=== PATIENT | female | born 1955 | race Caucasian/White ===

== ENCOUNTER 2017-05-22 18:35 | Inpatient (IN) ==
[2017-05-22] MEDS ORDERED: MORPHINE SULFATE 4mg INJECTION IVP ONE (18:37)
[2017-05-22] MEDS ORDERED: NS 1,000 ML IV ONE (18:37)
[2017-05-22] MEDS ORDERED: ONDANSETRON 4 MG/2 ML INJECTION IVP ONE (18:37)
--- NOTE | 2017-05-22 19:11 | Emergency Department Report ---
Fall HPI - General Chief Complaint: Fall Stated Complaint: Fall,hip pain Time Seen by Provider: 05/22/17 18:37 Source: patient, EMS Mode of arrival: EMS Limitations: no limitations - History of Present Illness HPI Narrative: 61yo woman presented to the ER for left hip pain. Pt was walking her dog immediately prior to presentation. The dog jerked her leash, and pt stumbled and fell. Now has severe left hip pain, external rotation, and shortening of her left leg. Denies other injuries or pain. MD complaint: fall Onset (ago): hour(s) Fall from: standing Fall witnessed: no Place fall occurred: home Loss of consciousness: none Prolonged down time: no Symptoms prior to fall: none Context: tripped/slipped Location of injury: pelvis Severity: severe Severity scale (1-10): 10 Quality: sharp, stabbing Associated symptoms (after fall): denies - Related Data Home Medications Medication Instructions Recorded Confirmed Albuterol Sulfate [Proair Hfa] 8.5 gm IH PRN #0 04/08/10 05/22/17 Folic Acid 400 mcg PO HS #0 04/08/10 05/22/17 Aspirin 325 mg PO DAILY #0 tab 12/10/14 05/22/17 Multivit-Min/Iron/Folic/Lutein 1 tab PO DAILY 02/17/17 05/22/17 [Centrum Silver Women Tablet] Acyclovir [Acyclovir] 400 mg PO BID 05/22/17 05/22/17 Gabapentin [Neurontin] 200 mg PO HS 05/22/17 05/22/17 Leflunomide [Leflunomide] 20 mg PO DAILY 05/22/17 05/22/17 Lidocaine [Lidocaine] 1 patch TD DAILY 05/22/17 05/22/17 Losartan Potassium [Cozaar] 25 mg PO DAILY 05/22/17 05/22/17 METHOTREXATE 2.5mg TAB 10 mg PO .BIDQ7D 05/22/17 05/22/17 [Methotrexate] PredniSONE [Deltasone] 7 mg PO Q30D 05/22/17 05/22/17 Sertraline [Zoloft] 100 mg PO DAILY 05/22/17 05/22/17 Tofacitinib Citrate [Xeljanz Xr] 11 mg PO DAILY 05/22/17 05/22/17 Previous Rx's Medication Instructions Recorded Breo Ellipta (fluticasone 100 1 inh INH Q24H #60 each 01/20/17 mcg-vilanterol 25 mcg/dose) powder for inhalation levalbuterol 1.25 mg/3 mL solution 1.25 mg INH Q4H PRN #3 ml 02/10/17 for nebulization Protonix (Pantoprazole)40 mg 40 mg PO QAM #90 tab 03/19/17 tablet,delayed release alendronate 70 mg tablet 70 mg PO WEEKLY #12 tab 03/19/17 estradiol 0.0375 mg/24 hr 1 patch TD 2XW #8 patch 04/14/17 semiweekly transdermal patch Allergies Allergy/AdvReac Type Severity Reaction Status Date / Time celecoxib Allergy Unknown N&V Verified 05/22/17 19:33 Review of Systems All systems: reviewed and negative except as stated Musculoskeletal: Reports: as per HPI PFSH Patient Stated Medical History Hypertension Yes Asthma Yes Pneumonia Yes Gastroesophageal Reflux Yes Disease Other Musculoskeletal Yes: 2 colapsed discs: 9,12 Sepsis Yes: leg Depression Yes Clinic Medical History (Last Updated 03/18/17 @ 16:54 by KATERINA Kinney ) Asthma (Chronic Medical) Hyperlipemia (Chronic Medical) Rheumatoid arthritis (Chronic Medical) Cellulitis and abscess of leg (Resolved Medical) Surgical History: eye surg at age 16, hysterectomy, appendectomy, neck surg ( bone spur)-2013 Family History: Family History (Last Updated 03/18/17 @ 16:59 by KATERINA Kinney) Mother Heart disease Sister COPD (chronic obstructive pulmonary disease) Brother Heart disease Diabetes HTN (hypertension) - Social History Smoking status: Former smoker Physical Exam - Limitations Limitations: no limitations - General General appearance: alert, in no apparent distress - Normal Exams: Head:: Normocephalic without trauma Eyes:: Pupils are PERRLA w/ EOMI, No scleral icterus, irritation, or foreign bodies noted ENMT:: No facial trauma, nasal exudates, pharyngeal erythema, or exudates are noted Neck:: Full range of motion, without adenopathy Chest/Respirations:: Clear all jernigan, with good airflow Cardiovascular:: Regular rate and rhythm, without murmur or gallop Abdomen:: Bowel sounds positive, soft, non-tender Lymphatic:: No lymphadenopathy Integumentary:: No rashes, hives, or bruising noted Neurological:: Patient is alert, and oriented Psychiatric:: Patient exhibits, appropriate attention - Expanded Lower Extremity Exam Hip/Pelvis exam: Present: tenderness, ecchymosis, deformity, crepitus, external rotation, shortening, pelvis stable. Absent: normal inspection, full ROM, swelling, abrasion, laceration, dislocation, erythema, internal rotation Neurovascular/Tendon exam: Present: normal capillary refill Course - Consultations Consultation #1: Ortho: Glenn - Will surgerize. Requests IM help with admission/stabilization/pre- op. Time: 19:10 Consultation #2: Braxton Telemed: Will admit to Surg. Time: 19:18 Vital Signs Temperature 97.6 F 05/22/17 18:35 Pulse Rate 88 05/22/17 18:35 Respiratory Rate 20 05/22/17 18:35 Blood Pressure 192/101 H 05/22/17 18:35 Pulse Oximetry 97 05/22/17 18:35 Temperature 96.3 F L 05/22/17 21:12 Pulse Rate 92 05/22/17 21:12 Respiratory Rate 14 05/22/17 21:12 Blood Pressure 153/75 H 05/22/17 21:12 Pulse Oximetry 98 05/22/17 21:12 Fall - MDM Narrative Medical decision making narrative: Pt with obvious left hip fx; will contact ortho for discussion. Will likely be admitted to hospitalist. - Differential Diagnosis Likely: syncope, compression fracture (Hip fx), concussion without loss of consciousness - Medical Records Attestation: I reviewed the patient's medical records. - Lab Data Attestation: I reviewed the patient's lab results. Result diagrams: 05/22/17 18:49 05/22/17 18:49 Lab Results 05/22/17 05/22/17 05/22/17 Range/Units 18:49 18:49 18:49 WBC 5.2 (4.5-11.0) T/MM3 RBC 3.82 L (4.00-5.20) M/MM3 Hgb 11.6 L (12-16) GM/DL Hct 36.0 (36-46) % MCV 94.2 (80-100) UM3 MCH 30.4 (26-34) UUG MCHC 32.2 (31-37) GM/DL RDW Std Deviation 49.7 (36.9-50.2) FL Plt Count 130 (130-400) T/MM3 MPV 10.8 (9.4-12.4) UM3 Immature Gran % (Auto) 0.2 (0.0-0.5) % Neut % (Auto) 32.5 L (33-66) % Lymph % (Auto) 51.5 H (23-45) % [place] % (Auto) 10.0 H (0-9.0) % Eos % (Auto) 5.2 H (0-4) % Baso % (Auto) 0.6 (0-2) % Neut # (Auto) 1.7 L (1.8-7.7) T/MM3 Lymph # (Auto) 2.7 (1-4.8) T/MM3 [place] # (Auto) 0.5 (0-0.8) T/MM3 Eos # (Auto) 0.3 (0-0.5) T/MM3 Baso # (Auto) 0.0 (0-0.2) T/MM3 Abs Immat Gran (auto) 0.01 (0.00-0.03) T/MM3 Turbidity < 20 (0-20) Sodium 139 (134-144) MEQ/L Potassium 4.0 (3.6-5) MEQ/L Chloride 105 (98-107) MEQ/L Carbon Dioxide 30 (22-30) MEQ/L Anion Gap 4 L (5-15) MEQ/L BUN 16.0 (7-17) MG/DL Creatinine 0.8 (0.7-1.2) MG/DL GFR Calculation 73 BUN/Creatinine Ratio 20 (6-26) RATIO Glucose 87 (65-110) MG/DL Calculated Osmolality 268 (261-280) MOSM/KG Calcium 9.1 (8.4-10.2) MG/DL Total Bilirubin 0.60 (0.20-1.30) MG/DL Icterus Index < 2 (0-7) AST 44 H (14-36) U/L ALT 44 (9-52) U/L Alkaline Phosphatase 138 H (38-126) U/L Creatine Kinase 106 (30-135) U/L Total Protein 7.5 (6.3-8.2) G/DL Albumin 3.8 (3.5-5.0) G/DL Globulin 3.7 H (2.4-3.6) G/DL Albumin/Globulin Ratio 1.0 L (1.1-2.2) RATIO Specimen Hemolysis < 15 (0-25) Blood Type A Positive Antibody Screen Negative - Radiology Data Attestation: I reviewed the patient's radiology results. Pelv with Left hip: Left femoral neck fx with superior displacement. CXR: Stable chest. No acute CT pathology. - EKG Data EKG #1 EKG attestation: Yes: I reviewed and interpreted this EKG. EKG shows normal: sinus rhythm, axis, intervals, QRS complexes Interpretation: nonspecific ST-T wave changes Disposition Clinical Impression: Left displaced femoral neck fracture Disposition: 02 To [facility] Acute Care Condition: Improved Time of Disposition: 19:23 - Seen By: physician
[2017-05-22] MEDS ORDERED: ALBUTEROL 2.5mg/3ml (0.083%) NEB AEROSOL PRN (21:11)
[2017-05-22] MEDS ORDERED: ACETAMINOPHEN 325 MG TABLET PO PRN (21:11)
[2017-05-22] MEDS ORDERED: ONDANSETRON 4 MG/2 ML INJECTION IVP PRN (21:11)
[2017-05-22 21:16] VITALS: BMI 23.3
[2017-05-22] MEDS: MORPHINE SULFATE 4mg INJECTION IVP PRN (21:34)
[2017-05-22] MEDS: NS 1,000 ML IV SCH (21:42)
--- NOTE | 2017-05-22 21:46 | Orthopedic Consult Note ---
Orthopedic Consultation HPI - Consultation Info Consult Date: 05/22/17 Attending Physician: Marc Egan MD - History of Present Illness Enma was outside in the strong wind with her dogs when the dogs pulled one direction and she lost her balance. She fell landing on concrete and injuring her left hip. She had immediate pain and was unable to get up.. Denies other injury with this fall. She has been in her normal state of health prior to this fall. Denies CP, cough, SOA, fever, or other medical concerns. Review of Systems - Constitutional Constitutional: Absent: chills, fever(s), headache(s) - Cardiovascular Cardiovascular: Absent: chest pain, syncope, dyspnea on exertion - Respiratory Respiratory: Absent: cough, dyspnea, dyspnea on exertion - Gastrointestinal Gastrointestinal: Absent: abdominal pain, change in bowel habits, diarrhea, vomiting - Genitourinary Genitourinary General: Absent: chills, fever(s) Genitourinary Female: Absent: dysuria - Musculoskeletal Musculoskeletal: Present: as per HPI - Neurological Neurological: Absent: numbness, tingling, paralysis/paresis [facility] Medical History (Last Updated 03/18/17 @ 16:54 by KATERINA Kinney ) Asthma (Chronic Medical) Hyperlipemia (Chronic Medical) Rheumatoid arthritis (Chronic Medical) Cellulitis and abscess of leg (Resolved Medical) Surgical History: eye surg at age 16, hysterectomy, appendectomy, neck surg ( bone spur)-2013 Family History: Family History (Last Updated 03/18/17 @ 16:59 by KATERINA Kinney) Mother Heart disease Sister COPD (chronic obstructive pulmonary disease) Brother Heart disease Diabetes HTN (hypertension) - Social History Smoking status: Former smoker Medications Home Medications Medication Instructions Recorded Confirmed Type Albuterol Sulfate [Proair Hfa] 8.5 gm IH PRN #0 04/08/10 05/22/17 History Folic Acid 400 mcg PO HS #0 04/08/10 05/22/17 History Aspirin 325 mg PO DAILY #0 tab 12/10/14 05/22/17 History Multivit-Min/Iron/Folic/Lutein 1 tab PO DAILY 02/17/17 05/22/17 History [Centrum Silver Women Tablet] Acyclovir [Acyclovir] 400 mg PO BID 05/22/17 05/22/17 History Gabapentin [Neurontin] 200 mg PO HS 05/22/17 05/22/17 History Leflunomide [Leflunomide] 20 mg PO DAILY 05/22/17 05/22/17 History Lidocaine [Lidocaine] 1 patch TD DAILY 05/22/17 05/22/17 History Losartan Potassium [Cozaar] 25 mg PO DAILY 05/22/17 05/22/17 History METHOTREXATE 2.5mg TAB 10 mg PO .BIDQ7D 05/22/17 05/22/17 History [Methotrexate] PredniSONE [Deltasone] 7 mg PO Q30D 05/22/17 05/22/17 History Sertraline [Zoloft] 100 mg PO DAILY 05/22/17 05/22/17 History Tofacitinib Citrate [Xeljanz Xr] 11 mg PO DAILY 05/22/17 05/22/17 History Allergies Allergy/AdvReac Type Severity Reaction Status Date / Time celecoxib Allergy Unknown N&V Verified 05/22/17 19:33 Orthopedic Exam Vital signs: Temperature 96.3 F L 05/22/17 21:12 Pulse Rate 92 05/22/17 21:12 Respiratory Rate 14 05/22/17 21:12 Blood Pressure 153/75 H 05/22/17 21:12 Pulse Oximetry 98 05/22/17 21:12 - Constitutional General Appearance: Present: cooperative, no acute distress, somnolent (Has received pain meds in ER. Sleepy ) - Respiratory Exam Present: non-labored - Cardiovascular Exam Capillary Refill: < 2-3 Seconds - Abdominal Exam Present: soft. Absent: tenderness, distended - Extremities Exam Present: pulses intact, normal capillary refill - Hip Exam left Hip Exam: Present: unequal leg length (Short and externally rotated left leg.), tender over trochanter, abnormal rotation - Integumentary Exam Present: pink, warm, dry - Neurological Exam Present: intact to light touch, no deficits - Psychiatric Exam Present: other (Sleepy from pain meds. Pt in ER trauma bay when I talked with her.) - Labs Result Diagrams: 05/22/17 18:49 05/22/17 18:49 Impression and Recommendation (1) Left displaced femoral neck fracture Current visit: Yes Status: Acute Pt will require either keven arthroplasty vs ROSANNA to treat this fracture. Dr Link will discuss the options with her tomorrow morning. Consent will be obtained after the type of procedure has been decided. Pre op meds have been ordered. Scenic traction prn for spasms. Anticipate surgery on FridayMay 23. NPO after midnight. Hospital Course Summary Disclaimer: The visit summary below is not to be considered part of the above Progress Note.
[2017-05-22] MEDS ORDERED: FALL RISK - PHARMACY CONSULT MC ONE (21:49)
--- NOTE | 2017-05-22 22:11 | History & Physical Report ---
<Juan Manuel Mcknight - Last Filed: 05/22/17 22:08> History of Present Illness Date: 05/22/17 Chief complaint: left hip pain HPI: This is a 61 y/o female who was walking two of her 5 dogs this evening and got tangled in the leash and fell landing on her left hip. Immediate pain. Presents to the ED with xray confirming displaced surgical neck fx of left femur. Dr. Link contacted and will see in the am. From a medical perspective she has a history of RA and is currently on a biological agent for this. Sheis being slowly tapered on her steroids. The patients level of activity is good. Very engaged in her environment and is able to perform over 8 METS of activity. The patient had a stress test 2 yrs ago that she reports as negative. Admit for surgical repair of hip. Review of Systems Review of systems: no headache, no chage in vision, no sore throat, no trouble swallowing, no neck pain (hx of c spine fusion in the past), no chest pain, no PND, no orthopnea, no ALONSO, no heart palpitations, no abdomen pain, no nausea no vomiting, no focal motor weakness, sig pain to let hip. 10 point ROS otherwise neg except for outlined above. PFSH Patient Stated Medical History Hypertension Yes Asthma Yes Pneumonia Yes Gastroesophageal Reflux Yes Disease Other Musculoskeletal Yes: 2 colapsed discs: 9,12, Rheumatoid Arthritis Sepsis Yes: leg Other Yes: Fibromyalgia Depression Yes Clinic Medical History (Last Updated 03/18/17 @ 16:54 by KATERINA Kinney ) Asthma (Chronic Medical) Hyperlipemia (Chronic Medical) Rheumatoid arthritis (Chronic Medical) Cellulitis and abscess of leg (Resolved Medical) Surgical History: eye surg at age 16, hysterectomy, appendectomy, neck surg ( bone spur)-2013 Family History: Family History (Last Updated 03/18/17 @ 16:59 by KATERINA Kinney) Mother Heart disease Sister COPD (chronic obstructive pulmonary disease) Brother Heart disease Diabetes HTN (hypertension) - Social History Smoking status: Former smoker Alcohol intake frequency: does not drink Housing: house Household members: spouse Current occupational exposures/hazards: Yes Does patient use chewing tobacco?: No Current residence: Apartment/Private Home Medications Home Medications Medication Instructions Recorded Confirmed Type Albuterol Sulfate [Proair Hfa] 8.5 gm IH PRN #0 04/08/10 05/22/17 History Folic Acid 400 mcg PO HS #0 04/08/10 05/22/17 History Aspirin 325 mg PO DAILY #0 tab 12/10/14 05/22/17 History Multivit-Min/Iron/Folic/Lutein 1 tab PO DAILY 02/17/17 05/22/17 History [Centrum Silver Women Tablet] Acyclovir [Acyclovir] 400 mg PO BID 05/22/17 05/22/17 History Gabapentin [Neurontin] 200 mg PO HS 05/22/17 05/22/17 History Leflunomide [Leflunomide] 20 mg PO DAILY 05/22/17 05/22/17 History Lidocaine [Lidocaine] 1 patch TD DAILY 05/22/17 05/22/17 History Losartan Potassium [Cozaar] 25 mg PO DAILY 05/22/17 05/22/17 History METHOTREXATE 2.5mg TAB 10 mg PO .BIDQ7D 05/22/17 05/22/17 History [Methotrexate] PredniSONE [Deltasone] 7 mg PO Q30D 05/22/17 05/22/17 History Sertraline [Zoloft] 100 mg PO DAILY 05/22/17 05/22/17 History Tofacitinib Citrate [Xeljanz Xr] 11 mg PO DAILY 05/22/17 05/22/17 History Allergies Allergy/AdvReac Type Severity Reaction Status Date / Time celecoxib Allergy Unknown N&V Verified 05/22/17 19:33 Exam Vital Signs: Temperature 96.3 F L 05/22/17 21:12 Pulse Rate 92 05/22/17 21:12 Respiratory Rate 14 05/22/17 21:12 Blood Pressure 153/75 H 05/22/17 21:12 Pulse Oximetry 98 05/22/17 21:12 Telemetry Rhythm: Sinus Rhythm Height/Weight/BMI: Height 1.7 m Weight 67.4 kg Body Mass Index 23.3 - Constitutional Present: moderate distress, well nourished, well developed, average body habitus , cooperative - Routine HEENT Exam Head: Present: normocephalic, atraumatic Eye: Present: PERRL, conjunctivae pink ENT: Present: mucous membranes dry - Routine Neck Exam Present: full ROM - Routine Respiratory Exam Present: CTA bilaterally. Absent: rales, respiratory distress, rhonchi, wheezes - Routine Cardiovascular Exam Present: RRR, no murmur. Absent: S3, S4 - Routine Abdominal Exam Present: normoactive bowel sounds, non distended, non tender - Routine Extremities Exam Present: no edema Comments: shortened and ext rotated left hip - Routine Skin Exam Present: intact - Routine Neurological Exam Present: alert, oriented X3. Absent: motor deficit, altered mental status - Routine Psychiatric Exam Present: normal affect, normal thought process Results - Labs CBC & Chem 7: 05/22/17 18:49 05/22/17 18:49 Labs: reviewed and unremarkable, mild anemia - ECG Data Tracing #1 sinus, non ischemic, benign - Imaging and Cardiology Chest x-ray Additional comments: given her hx of copd, benign in appearance left hip Additional comments: fx of surgical neck, displaced Assessment and Plan (1) Left displaced femoral neck fracture Current visit: Yes Status: Acute (2) Rheumatoid arthritis Current visit: Yes Status: Acute (3) COPD (chronic obstructive pulmonary disease) Current visit: Yes Status: Acute (4) Adrenal insufficiency due to corticosteroid withdrawal Current visit: Yes Status: Acute (5) GERD (gastroesophageal reflux disease) Current visit: Yes Status: Acute (6) Hypertension Current visit: Yes Status: Acute Assessment and Plan: 1. patient npo after midnight. Dr. Link will see in am. From a pre op perspective she is moderate risk but no pre op risk stratification is indicated at this time. Ovviousl usual precautions with RA and intubation would be in order (previous c spine fusion). IVF, repeat labs in the am. 2. RA is chronic. steroid taper on biologic agent. will need to treat with IV steroids I think due to adrenal suppression 3. from COPD perspective nebs and careful post op pulmonary toilet 4. anemia is chronic but anticipate anemia of acute blood loss. will monoitor labs in the am 5. patient's blood pressure elevated. will use b erwin prn, on arb at home 6. scd, 7. PPI full inpaitent admisison Hospital Course Summary Disclaimer: The visit summary below is not to be considered part of the above Progress Note. <Fran Gilbert IV - Last Filed: 05/23/17 10:53> History of Present Illness Date: 05/23/17 [facility] Patient Stated Medical History Hypertension Yes Asthma Yes Pneumonia Yes Gastroesophageal Reflux Yes Disease Other Musculoskeletal Yes: 2 colapsed discs: 9,12, Rheumatoid Arthritis Sepsis Yes: leg Other Yes: Fibromyalgia Depression Yes Clinic Medical History (Last Updated 03/18/17 @ 16:54 by KATERINA Kinney ) Asthma (Chronic Medical) Hyperlipemia (Chronic Medical) Rheumatoid arthritis (Chronic Medical) Cellulitis and abscess of leg (Resolved Medical) Family History: Family History (Last Updated 03/18/17 @ 16:59 by KATERINA Kinney) Mother Heart disease Sister COPD (chronic obstructive pulmonary disease) Brother Heart disease Diabetes HTN (hypertension) Exam Vital Signs: Temperature 97.8 F 05/23/17 00:08 Pulse Rate 107 H 05/23/17 08:00 Respiratory Rate 16 05/23/17 08:00 Blood Pressure 149/75 H 05/23/17 08:00 Pulse Oximetry 94 05/23/17 08:00 Height/Weight/BMI: Height 5 ft 7 in Weight 67.4 kg Body Mass Index 23.3 Results - Labs CBC & Chem 7: 05/23/17 04:11 05/23/17 04:11 Assessment and Plan (1) Left displaced femoral neck fracture Current visit: Yes Status: Acute (2) Rheumatoid arthritis Current visit: Yes Status: Acute (3) COPD (chronic obstructive pulmonary disease) Current visit: Yes Status: Acute (4) Adrenal insufficiency due to corticosteroid withdrawal Current visit: Yes Status: Acute (5) GERD (gastroesophageal reflux disease) Current visit: Yes Status: Acute (6) Hypertension Current visit: Yes Status: Acute Assessment and Plan: I have independently interviewed and examined the patient. Chart reviewed. Above note reviewed and concur. CC: hip fx HPI: 61 yo female fell while walking two of her dogs. She had left hip pain and could not get up. Xray shows displaced surgical neck fx. Patient in traction, and says the pain is controlled. The patient has RA and is on leflunomide, tofacitinib, methotrexate and prednisone. Her steroids are being slowly tapered. She denies any recent health problems. She is active. She had a negative stress test 2 years ago. PMHx, SHx, FamHx reviewed. ROS: in addition to above, 10 point ROS is negative Exam: Gen: nad HEENT: nc/at, perrl, eomi Neck: supple Lungs: clear bilaterally. No crackles or wheezes Cardiac: rrr, no murmur GI: s/nt/nd +BS Ext: no edema Neuro: CN II-XII intact. A&O x 3 Lab: reviewed Radiology: reviewed Assessment: reviewed Plan: Inpatient admission. Patient npo for surgery. Dr. Link consulted. [place] and morphine for pain control. Duonebs for COPD. IV steroids for suspected adrenal suppression. Continue PPI for GERD. Continue ARB for HTN. Hospital Course Summary Disclaimer: The visit summary below is not to be considered part of the above Progress Note. Hospital Course: 05/23/17 10:52 Inpatient admission. Patient npo for surgery. Dr. Link consulted. [place] and morphine for pain control. Duonebs for COPD. IV steroids for suspected adrenal suppression. Continue PPI for GERD. Continue ARB for HTN.
[2017-05-22] MEDS ORDERED: METOPROLOL 5mg/5ml INJECTION IVP PRN (22:22)
[2017-05-22] MEDS: ALBUTEROL/IPRATROPIUM 2.5mg-0.5mg/3ml NEB AEROSOL SCH (23:20)
[2017-05-23] MEDS: HYDROCODONE/APAP 5mg/325mg TABLET PO PRN (00:04)
[2017-05-23] MEDS: HYDROCORTISONE SOD SUCC 100mg/2ml INJECTION IVP SCH ×3 (00:07→18:19)
[2017-05-23] MEDS: MORPHINE SULFATE 4mg INJECTION IVP PRN ×2 (04:15→11:22)
[2017-05-23] MEDS: ALBUTEROL/IPRATROPIUM 2.5mg-0.5mg/3ml NEB AEROSOL SCH ×4 (04:40→21:00)
[2017-05-23] MEDS: PANTOPRAZOLE 40 MG TABLET PO SCH (06:41)
[2017-05-23] MEDS ORDERED: ACETAMINOPHEN 500 MG TABLET PO ONE ×2 (08:12→10:56)
[2017-05-23] MEDS ORDERED: DEXAMETHASONE 4 MG/ML INJECTION IVP ONE ×2 (08:12→10:56)
[2017-05-23] MEDS ORDERED: TRANEXAMIC ACID 1,000 MG in NS 100 ML IV ONE ×2 (08:12→10:56)
--- NOTE | 2017-05-23 08:43 | XRay Report ---
Indication: Left femoral fx Procedure: XR chest 1V: Encounter: Initial Comparison: 03/19/2017 Technique: A single portable AP chest radiograph was obtained. Findings: Lungs and airways: Normal lung volumes. Mild basilar atelectasis/scarring. No other/new focal airspace consolidation. Normal pulmonary vasculature. Pleura: No pleural effusion or pneumothorax. Heart and mediastinum: The cardiomediastinal silhouette and great vessels are within normal limits. Osseous structures and soft tissues: No acute osseous abnormality is seen. Impression: No acute cardiopulmonary process. .
--- NOTE | 2017-05-23 08:44 | XRay Report ---
Indication: Fall; left hip rotation and shortening Procedure: XR pelvis w/ 2 view LT hip: Encounter: Initial Comparison: None Technique: Three views of the pelvis and left hip were obtained Findings: Generalized osteopenia. There is an acute basicervical fracture of the left femoral neck with prominent proximal foreshortening and angulation. Degenerative arthrosis of the hips. No focal radiographically apparent soft tissue swelling. No radiopaque foreign body. Impression: Superiorly displaced/foreshortened basicervical fracture of the left femoral neck. .
[2017-05-23] MEDS: NS 1,000 ML IV SCH ×3 (08:50→18:25)
[2017-05-23] MEDS ORDERED: ACYCLOVIR 200 MG CAPSULE PO SCH (09:00)
[2017-05-23] MEDS ORDERED: METOCLOPRAMIDE 10mg/2ml INJECTION IVP ONE (10:56)
[2017-05-23] MEDS ORDERED: FAMOTIDINE PB 20 MG/50 ML BAG IV ONE (10:56)
[2017-05-23] MEDS ORDERED: NOZIN NASAL SWAB NAS ONE ×2 (10:56→17:30)
[2017-05-23] MEDS ORDERED: ONDANSETRON 4 MG/2 ML INJECTION IVP ONE (10:56)
[2017-05-23] MEDS ORDERED: CEFAZOLIN 1 G INJECTION IVP ONE (11:03)
[2017-05-23] MEDS ORDERED: DEXAMETHASONE INJ 10 MG in NS 50 ML IV ONE (11:30)
[2017-05-23] MEDS: NOZIN NASAL SWAB NAS ONE ×2 (12:01→12:02)
--- NOTE | 2017-05-23 12:11 | Anesthesia Preoperative Report ---
Anesthesia Preoperative Record - Date and Time Date: 05/23/17 Preoperative Diagnosis: fx left hip Proposed Procedure: femoral head replacement [id number] NPO Since Date: 05/22/17 NPO Since Time: 23:00 Allergies/Adverse Reactions: Allergies Allergy/AdvReac Type Severity Reaction Status Date / Time celecoxib Allergy Unknown N&V Verified 05/22/17 19:33 - Vital Signs Vital Signs: Temperature 97.7 F 05/23/17 11:50 Pulse Rate 115 H 05/23/17 11:50 Respiratory Rate 20 05/23/17 11:50 Blood Pressure 126/67 05/23/17 11:50 Pulse Oximetry 95 05/23/17 11:50 Height and Weight: Height 1.7 m Weight 67.4 kg Body Mass Index 23.3 - Medications Inpatient Medications: Current Medications Acetaminophen (Tylenol) 325 - 650 mg PO Q5H PRN PRN Reason: Discomfort Hydrocodone Bitart/Acetaminophen ([place] 5/325) 1 tab PO Q6H PRN PRN Reason: Pain Last Admin: 05/23/17 00:04 Dose: 1 tab Acyclovir (Zovirax) 400 mg PO BID KAUR Albuterol Sulfate (Proventil Neb (0.083%)) 2.5 mg AEROSOL Q6H PRN PRN Reason: Wheezing Albuterol/Ipratropium (Duoneb) 3 ml AEROSOL Q6H KAUR Last Admin: 05/23/17 10:41 Dose: 3 ml Hydrocortisone Sodium Succinate (Solu-Cortef) 50 mg IVP Q8HR KAUR Last Admin: 05/23/17 00:07 Dose: 50 mg Sodium Chloride (Normal Saline) 1,000 mls @ 100 mls/hr IV .Q10H KAUR Last Admin: 05/23/17 08:50 Dose: 100 mls/hr Lactated Ringer's (Lactated Ringers) 1,000 mls @ 50 mls/hr IV .Q20H KAUR Losartan Potassium (Cozaar) 25 mg PO DAILY KAUR Metoprolol Tartrate (Lopressor) 5 mg IVP Q6H PRN PRN Reason: Hypertension Morphine Sulfate (Morphine Sulfate Inj) 2 - 4 mg IVP Q2H PRN PRN Reason: Pain Last Admin: 05/23/17 11:22 Dose: 4 mg Non-Formulary Medication (Tofacitinib Citrate [Xeljanz Xr]) 11 mg PO DAILY KAUR Ondansetron HCl (Zofran) 4 mg IVP Q6H PRN PRN Reason: Nausea &/or vomiting Pantoprazole Sodium (Protonix Tab) 40 mg PO ACB KUAR Last Admin: 05/23/17 06:41 Dose: Not Given Sertraline HCl (Zoloft) 100 mg PO DAILY [facility] Sodium Chloride (Iv Flush) 10 - 80 ml IVF PRN PRN PRN Reason: [place] Home Medications: Home Medications Medication Instructions Recorded Confirmed Type Albuterol Sulfate [Proair Hfa] 8.5 gm IH PRN #0 04/08/10 05/22/17 History Folic Acid 400 mcg PO HS #0 04/08/10 05/22/17 History Aspirin 325 mg PO DAILY #0 tab 12/10/14 05/22/17 History Multivit-Min/Iron/Folic/Lutein 1 tab PO DAILY 02/17/17 05/22/17 History [Centrum Silver Women Tablet] Acyclovir [Acyclovir] 400 mg PO BID 05/22/17 05/22/17 History Gabapentin [Neurontin] 200 mg PO HS 05/22/17 05/22/17 History Leflunomide [Leflunomide] 20 mg PO DAILY 05/22/17 05/22/17 History Lidocaine [Lidocaine] 1 patch TD DAILY 05/22/17 05/22/17 History Losartan Potassium [Cozaar] 25 mg PO DAILY 05/22/17 05/22/17 History METHOTREXATE 2.5mg TAB 10 mg PO .BIDQ7D 05/22/17 05/22/17 History [Methotrexate] PredniSONE [Deltasone] 7 mg PO Q30D 05/22/17 05/22/17 History Sertraline [Zoloft] 100 mg PO DAILY 05/22/17 05/22/17 History Tofacitinib Citrate [Xeljanz Xr] 11 mg PO DAILY 05/22/17 05/22/17 History Is Patient on Beta Ronnie?: No - Medical History Respiratory: Reports: Asthma, Other (seen cardiology 3 yrs ago with no problems ) Neuro/Musculoskeletal: Reports: Other (neck surgery no weakness or numbness in arms ) - Surgical History HEENT Surgeries: Reports: Eye Surgery (BILATERAL) GI Surgery/Treatments: Reports: Appendectomy Musculoskeletal Surgery/Tx: Reports: Other (NECK SURGERY) Reproductive Surgery/Treatment: Reports: Hysterectomy Anesthesia Reactions: Other (hard to wake up after neck ) Hx Family Anesthesia Reaction: No - Social History Smoking Status: Former smoker - Pertinent Findings Laboratory: CBC and BMP 05/23/17 04:11 05/23/17 04:11 BMP 05/23/17 04:11 Sodium 140 Potassium 4.0 Chloride 108 H Carbon Dioxide 27 BUN 15.0 Creatinine 0.6 L D Glucose 129 H Calcium 8.6 EKG: Sinus Tachycardia - Physical Exam Respiratory Exam: Present: lungs clear, bilateral breath sounds equal Cardiovascular Exam: Present: regular rate and rhythm, no murmur - Airway Assessment Mallampati Score: II TMD: 3 Fingerbreadths Neck Extension: fair Overall Assessment: may be difficult intubation - ASA ASA Score: 2 - Plan Anesthesia: General Inhalation Gases Regional/Trunk Block: Spinal - Discussion Discussion: Discussed risks/options/alternatives of anesthesia and questions answered. Patient consents. Nursing pain assessment noted. Attestation Statement: Prior to the delivery of any anesthetic medication, I examined the patient, developed the plan, obtained the patient's consent and discussed the risk and benefits of the procedure with the patient/guardian.
[2017-05-23] MEDS: ACYCLOVIR 200 MG CAPSULE PO SCH ×2 (12:13→21:13)
[2017-05-23] MEDS: LOSARTAN 50 MG TABLET PO SCH (12:13)
[2017-05-23] MEDS: SERTRALINE 100 MG TABLET PO SCH (12:13)
[2017-05-23] MEDS ORDERED: TOTAL JOINT INJECTION MIXTURE 65.25 ml OPSITE ONE (12:15)
[2017-05-23] MEDS ORDERED: FentaNYL 250 MCG/5 ML INJECTION ONE (12:22)
[2017-05-23] MEDS ORDERED: MIDAZOLAM 2mg/2ml INJECTION ONE (12:23)
[2017-05-23] MEDS ORDERED: KETAMINE 500 MG/10 ML INJECTION ONE (12:23)
[2017-05-23] MEDS ORDERED: VANCOMYCIN 1,000 MG INJECTION ONE (12:24)
[2017-05-23] MEDS: LR 1,000 ML IV SCH ×2 (12:36→14:48)
[2017-05-23] MEDS ORDERED: PROPOFOL 20 ML ONE (12:59)
[2017-05-23] MEDS ORDERED: ROCURONIUM 50 MG/5 ML INJECTION IVP ONE (12:59)
[2017-05-23] MEDS ORDERED: VANCOMYCIN 1,000 MG INJECTION IAR ONE (13:47)
[2017-05-23] MEDS ORDERED: ONDANSETRON 4 MG/2 ML INJECTION ONE (14:26)
--- NOTE | 2017-05-23 14:33 | Operative Note ---
- Procedure Preoperative Diagnosis: Left displaced femoral neck fracture Postoperative Diagnosis: Same as preoperative diagnosis. Surgeon: Kaitlynn Link MD Car Tracer: Juan Manuel Dan Complications: None. Anesthesia: General Estimated Blood Loss: See Anesthesia Record. Fluids: Please see Anesthesia Record. Description of Procedure: Mrs. Wilkins and her left hip were identified and marked in the preoperative holding area. She was brought back to the operating suite and placed under general anesthesia. She was then placed in a lateral decubitus position with her left hip up. The left lower extremity was prepped and draped in my normal sterile fashion. Timeout was performed. A posterior approach was utilized. Sharp dissection was carried through skin and subcutaneous tissue down to muscle fascia which was then split in line with the skin incision. Muscle fibers were and Charnley retractor placed. The short external rotators were identified. The abductors were retracted as the piriformis was released and tagged. The other rotators were released in a capsulotomy was performed. Fracture hematoma was evacuated and the head was removed. A femoral neck osteotomy was made once the medial proximal to the lesser trochanter. The acetabulum was then evaluated bone quality appeared normal. Because of her age related decided proceed with total hip replacement. Labrum was removed. We then circumferentially reamed from a 45-51 mm. A trial cup was then placed. It looked good so final 52 mm cup was placed and impacted at 20 of anteversion and 40 of tilt. I placed 2 screws in the superior posterior quadrant. Both achieved good bite. A liner was then placed. The proximal femur was then prepared with a cookie cutter followed by broaching to a size 4 Accolade 2 stem. We trialed with a 0 head. This gave her good stability but she was just a touch short so we trialed with a +2.5 head. This again gave excellent stability and good leg length. After thorough irrigation a final Accolade 2 femoral stem size 4 with 132 neck was placed. After another trial was put in a final +2.5 ceramic head. A final reduction was performed. Joint cocktail was injected throughout soft tissue. The wound was irrigated with Betadine solution. A capsulotomy was repaired with #1 Ethibond. The piriformis tendon was also repaired with #1 Ethibond. 1 g vancomycin powder was placed into the joint before the fascia was closed with #1 Vicryl. 2-0 Vicryl was used in subcutaneous tissue followed by a running 4-0 Monocryl in the skin followed by Dermabond and sterile dressing. The drapes were then removed and the patient was taken back to the recovery room under the care of anesthesia. She tolerated the procedure well and there were no complications.
[2017-05-23] MEDS ORDERED: SUGAMMADEX 200mg/2ml INJECTION IVP ONE (14:41)
--- NOTE | 2017-05-23 15:59 | XRay Report ---
EXAM: XR pelvis w/ 1 view LT hip DATE: 05/23/2017 3:21 PM ENCOUNTER: Subsequent INDICATION: postoperative image COMPARISON: 05/22/2017 TECHNIQUE: An AP view of the pelvis as well as crosstable lateral view of the left hip were obtained. FINDINGS: Generalized osteopenia. Interval postoperative changes of left hip arthroplasty. The hardware components appear appropriately aligned without evidence of acute hardware complication. No periprosthetic fracture The joint spaces are maintained. Mild soft tissue swelling and postoperative subcutaneous gas overlying the left hip. IMPRESSION: Postoperative changes of left hip arthroplasty without evidence of acute hardware complication or periprosthetic fracture. .
[2017-05-23] MEDS ORDERED: DiphenhydrAMINE 50 MG/ML INJECTION IVP PRN (17:30)
[2017-05-23] MEDS ORDERED: DiphenhydrAMINE 25 MG CAPSULE PO PRN (17:30)
--- NOTE | 2017-05-23 18:04 | Anesthesia Postoperative Note ---
- Date and Time Date: 05/23/17 Time: 15:45 - Status Patient Participated in Evaluation: Patient Participated in Person Vital Signs: Temperature 96.3 F L 05/23/17 16:01 Pulse Rate 96 05/23/17 17:33 Respiratory Rate 16 05/23/17 16:19 Blood Pressure 110/59 05/23/17 17:33 Pulse Oximetry 94 05/23/17 17:33 Respiratory Function: Airway Patent Cardiovascular Function: Regular Pulse EKG: Sinus Rhythm Mental Status: Alert and Oriented Pain Intensity: 2 Hydration: IV Infusing Complications During Recover: None Apparent - Follow-Up Instructions Instructions: Per Surgeon
[2017-05-23] MEDS: CEFAZOLIN 2 G in NS 100 ML IV SCH (18:20)
[2017-05-23] MEDS: ENOXAPARIN 40 MG/0.4 ML INJECTION SQ SCH (21:13)
[2017-05-23] MEDS: DOCUSATE SODIUM 100 MG CAPSULE PO SCH (21:13)
[2017-05-24] MEDS: HYDROCORTISONE SOD SUCC 100mg/2ml INJECTION IVP SCH ×3 (01:58→21:03)
[2017-05-24] MEDS: CEFAZOLIN 2 G in NS 100 ML IV SCH (01:59)
[2017-05-24] MEDS: ALBUTEROL/IPRATROPIUM 2.5mg-0.5mg/3ml NEB AEROSOL SCH ×4 (02:52→21:25)
[2017-05-24] MEDS: HYDROCODONE/APAP 5mg/325mg TABLET PO PRN ×3 (05:59→21:51)
[2017-05-24] MEDS: PANTOPRAZOLE 40 MG TABLET PO SCH (05:59)
--- NOTE | 2017-05-24 07:33 | Orthopedic Progress Note ---
Date: Subjective/Severity of Illness: Mrs. Dior is doing well this morning she has no specific concerns. Her pain is controlled. Orthopedic Objective Vital signs: Temperature 99.3 F 05/24/17 04:00 Pulse Rate 103 H 05/24/17 04:00 Respiratory Rate 16 05/24/17 04:00 Blood Pressure 113/58 05/24/17 04:00 Pulse Oximetry 92 05/24/17 04:00 Height and Weight: Height 5 ft 7 in Weight 67.4 kg Body Mass Index 23.3 - Constitutional General Appearance: Present: cooperative, no acute distress - Respiratory Exam Present: non-labored - Cardiovascular Exam Capillary Refill: < 2-3 Seconds - Extremities Exam Present: no edema - Integumentary Exam Present: pink, warm, dry - Neurological Exam Present: intact to light touch, no deficits - Wound Management Left Hip Primary Dressing: Mepilex Comments: Dressings clean dry and intact - Labs Result Diagrams: 05/24/17 03:57 05/24/17 03:57 Abnormal lab results 05/24/17 05/24/17 Range/Units 03:57 03:57 RBC 3.16 L (4.00-5.20) M/MM3 Hgb 9.5 L D (12-16) GM/DL Hct 30.5 L D (36-46) % RDW Std Deviation 51.5 H (36.9-50.2) FL Plt Count 107 L (130-400) T/MM3 Chloride 109 H (98-107) MEQ/L Anion Gap 4 L (5-15) MEQ/L Glucose 132 H (65-110) MG/DL Calcium 7.9 L D (8.4-10.2) MG/DL H & H 05/23/17 05/24/17 Range/Units 04:11 03:57 Hgb 11.8 L 9.5 L D (12-16) GM/DL Hct 37.0 30.5 L D (36-46) % Orthopedic Assessment and Plan (1) Left displaced femoral neck fracture Status: Acute Assessment and Plan: Mrs. Dior is doing well postop day 1. Morning labs are not available yet. Progress with physical therapy and hip precautions. - Anticoagulation Therapy Anticoagulation: Lovenox 40 mg SQ Daily x 30 days from day of surgery Hospital Course Summary Disclaimer: The visit summary below is not to be considered part of the above Progress Note. Hospital Course: 05/23/17 10:52 Inpatient admission. Patient npo for surgery. Dr. Link consulted. [place] and morphine for pain control. Duonebs for COPD. IV steroids for suspected adrenal suppression. Continue PPI for GERD. Continue ARB for HTN.
[2017-05-24] MEDS: DOCUSATE SODIUM 100 MG CAPSULE PO SCH ×2 (08:54→21:03)
[2017-05-24] MEDS: SERTRALINE 100 MG TABLET PO SCH (08:54)
[2017-05-24] MEDS: ACYCLOVIR 200 MG CAPSULE PO SCH ×2 (08:54→21:03)
[2017-05-24] MEDS: POLYETHYL GLYCOL 3350 17gm PACKET PO SCH (08:54)
[2017-05-24] MEDS: LOSARTAN 50 MG TABLET PO SCH (08:54)
[2017-05-24] MEDS: NS 1,000 ML IV SCH (09:47)
--- NOTE | 2017-05-24 10:42 | Progress Note ---
- Date 05/24/17 Subjective: Enma is up to a chair and says she is doing well. She has worked with therapy. Says she is comfortable. Last pain meds given were 05/22. She tolerated her diet yesterday. Objective Vital signs: Temperature 96.1 F L 05/24/17 07:44 Pulse Rate 94 05/24/17 07:44 Respiratory Rate 16 05/24/17 09:01 Blood Pressure 121/63 05/24/17 07:44 Pulse Oximetry 98 05/24/17 09:01 Rhythm: Normal Sinus Rhythm Height/Weight/BMI: Height 5 ft 7 in Weight 77.5 kg Body Mass Index 23.3 - Constitutional Present: well nourished, well developed - Routine HEENT Exam Eye: Present: EOMI ENT: Present: mucous membranes moist, dentition normal - Routine Respiratory Exam Present: CTA bilaterally. Absent: wheezes - Routine Cardiovascular Exam Present: RRR. Absent: murmur - Routine Abdominal Exam Present: soft, normoactive bowel sounds, non distended. Absent: tenderness - Routine Extremities Exam Present: normal capillary refill - Routine Psychiatric Exam Present: normal affect Results - Labs CBC & Chem 7: 05/24/17 03:57 05/24/17 03:57 Assessment and Plan (1) Left displaced femoral neck fracture Current visit: Yes Status: Acute (2) Rheumatoid arthritis Current visit: Yes Status: Acute (3) COPD (chronic obstructive pulmonary disease) Current visit: Yes Status: Acute (4) Adrenal insufficiency due to corticosteroid withdrawal Current visit: Yes Status: Acute (5) GERD (gastroesophageal reflux disease) Current visit: Yes Status: Acute (6) Hypertension Current visit: Yes Status: Acute (7) Acute blood loss as cause of postoperative anemia Current visit: Yes Status: Acute Assessment and Plan: I have independently interviewed and examined the patient. Chart reviewed. Above note reviewed and concur. CC: hip fx HPI: 61 yo female fell while walking two of her dogs. She had left hip pain and could not get up. Xray shows displaced surgical neck fx. Patient in traction, and says the pain is controlled. The patient has RA and is on leflunomide, tofacitinib, methotrexate and prednisone. Her steroids are being slowly tapered. She denies any recent health problems. She is active. She had a negative stress test 2 years ago. PMHx, SHx, FamHx reviewed. ROS: in addition to above, 10 point ROS is negative Exam: Gen: nad HEENT: nc/at, perrl, eomi Neck: supple Lungs: clear bilaterally. No crackles or wheezes Cardiac: rrr, no murmur GI: s/nt/nd +BS Ext: no edema Neuro: CN II-XII intact. A&O x 3 Lab: reviewed Radiology: reviewed Assessment: reviewed Plan: Inpatient admission. Patient npo for surgery. Dr. Link consulted. [place] and morphine for pain control. Duonebs for COPD. IV steroids for suspected adrenal suppression. Continue PPI for GERD. Continue ARB for HTN. left displaced femoral neck fracture RA COPD chronic steroids, possible adrenal insufficiency GERD HTN ABLA Doing well post-op. Increase activity. Decrease solu-cortef. Monitor hemoglobin. Continue ARB and BB. Bladder training. Resume RA tx Hospital Course Summary Disclaimer: The visit summary below is not to be considered part of the above Progress Note. Hospital Course: 05/23/17 10:52 Inpatient admission. Patient npo for surgery. Dr. Link consulted. [place] and morphine for pain control. Duonebs for COPD. IV steroids for suspected adrenal suppression. Continue PPI for GERD. Continue ARB for HTN. 05/24/17 10:57 left displaced femoral neck fracture RA COPD chronic steroids, possible adrenal insufficiency GERD HTN ABLA Doing well post-op. Increase activity. Decrease solu-cortef. Monitor hemoglobin. Continue ARB and BB. Bladder training. Resume RA tx
[2017-05-24] MEDS: TOFACITINIB CITRATE 11 MG PO SCH ×2 (11:14→12:02)
[2017-05-24] MEDS: LEFLUNOMIDE 10 MG TABLET PO SCH (12:16)
[2017-05-24] MEDS ORDERED: SENNOSIDES 8.6 MG TABLET PO PRN (14:51)
[2017-05-24] MEDS: SALINE FLUSH 10ml SYRINGE IVF PRN (21:02)
[2017-05-24] MEDS: ENOXAPARIN 40 MG/0.4 ML INJECTION SQ SCH (21:02)
[2017-05-24] MEDS: FOLIC ACID 1 MG TABLET PO SCH (21:03)
[2017-05-25] MEDS: ALBUTEROL/IPRATROPIUM 2.5mg-0.5mg/3ml NEB AEROSOL SCH ×4 (03:30→20:51)
[2017-05-25] MEDS: PANTOPRAZOLE 40 MG TABLET PO SCH (05:59)
[2017-05-25] MEDS: LOSARTAN 50 MG TABLET PO SCH (08:24)
[2017-05-25] MEDS: POLYETHYL GLYCOL 3350 17gm PACKET PO SCH (08:24)
[2017-05-25] MEDS: LEFLUNOMIDE 10 MG TABLET PO SCH (08:24)
[2017-05-25] MEDS: DOCUSATE SODIUM 100 MG CAPSULE PO SCH ×2 (08:24→21:47)
[2017-05-25] MEDS: HYDROCORTISONE SOD SUCC 100mg/2ml INJECTION IVP SCH ×2 (08:24→21:48)
[2017-05-25] MEDS: ACYCLOVIR 200 MG CAPSULE PO SCH ×2 (08:24→21:46)
[2017-05-25] MEDS: SERTRALINE 100 MG TABLET PO SCH (08:25)
[2017-05-25] MEDS: HYDROCODONE/APAP 5mg/325mg TABLET PO PRN ×3 (08:25→21:47)
[2017-05-25] MEDS: TOFACITINIB CITRATE 11 MG PO SCH (08:26)
--- NOTE | 2017-05-25 11:41 | Orthopedic Progress Note ---
Date: Subjective/Severity of Illness: No new complaints except for some spasms in her left leg yesterday which resolved with pain medication. She states she walked twice yesterday well. Orthopedic Objective Vital signs: Temperature 97.5 F 05/25/17 11:12 Pulse Rate 111 H 05/25/17 11:12 Respiratory Rate 18 05/25/17 11:12 Blood Pressure 112/54 05/25/17 11:12 Pulse Oximetry 97 05/25/17 11:12 Height and Weight: Height 5 ft 7 in Weight 78.4 kg Body Mass Index 23.3 - Constitutional General Appearance: Present: cooperative, no acute distress - Respiratory Exam Present: non-labored - Cardiovascular Exam Capillary Refill: < 2-3 Seconds - Abdominal Exam Absent: tenderness, distended - Extremities Exam Present: normal capillary refill - Integumentary Exam Present: pink, warm, dry - Neurological Exam Present: intact to light touch, no deficits - Wound Management Left Hip Primary Dressing: Mepilex - Labs Result Diagrams: 05/25/17 04:40 05/25/17 04:40 Abnormal lab results 05/25/17 05/25/17 Range/Units 04:40 04:40 RBC 2.84 L (4.00-5.20) M/MM3 Hgb 8.6 L (12-16) GM/DL Hct 27.3 L (36-46) % RDW Std Deviation 51.9 H (36.9-50.2) FL Plt Count 105 L (130-400) T/MM3 Chloride 109 H (98-107) MEQ/L Anion Gap 2 L (5-15) MEQ/L Creatinine 0.6 L (0.7-1.2) MG/DL BUN/Creatinine Ratio 27 H (6-26) RATIO Glucose 127 H (65-110) MG/DL H & H 05/23/17 05/24/17 05/25/17 Range/Units 04:11 03:57 04:40 Hgb 11.8 L 9.5 L D 8.6 L (12-16) GM/DL Hct 37.0 30.5 L D 27.3 L (36-46) % Orthopedic Assessment and Plan (1) Left displaced femoral neck fracture Status: Acute Assessment and Plan: Mrs. Dior is doing well postop day 2. Progress with physical therapy and hip precautions. Hospital Course Summary Disclaimer: The visit summary below is not to be considered part of the above Progress Note. Hospital Course: 05/23/17 10:52 Inpatient admission. Patient npo for surgery. Dr. Link consulted. [place] and morphine for pain control. Duonebs for COPD. IV steroids for suspected adrenal suppression. Continue PPI for GERD. Continue ARB for HTN. 05/24/17 10:57 left displaced femoral neck fracture RA COPD chronic steroids, possible adrenal insufficiency GERD HTN ABLA Doing well post-op. Increase activity. Decrease solu-cortef. Monitor hemoglobin. Continue ARB and BB. Bladder training. Resume RA tx
--- NOTE | 2017-05-25 11:43 | Progress Note ---
<Jamila Godfrey D - Last Filed: 05/25/17 11:40> - Date 05/25/17 Subjective: Enma is seen today in follow up. She is in the middle of a breathing treatment , so does not give much history. She states she is feeling ok. Is up in chair, looks well. Chart is reviewed during this visit. Objective Vital signs: Temperature 97.5 F 05/25/17 11:12 Pulse Rate 111 H 05/25/17 11:12 Respiratory Rate 18 05/25/17 11:12 Blood Pressure 112/54 05/25/17 11:12 Pulse Oximetry 97 05/25/17 11:12 Rhythm: Sinus Tachycardia Height/Weight/BMI: Height 1.7 m Weight 78.4 kg Body Mass Index 23.3 - Constitutional Present: no acute distress, well nourished, well developed, cooperative - Routine HEENT Exam Head: Present: normocephalic, atraumatic Eye: Present: EOMI, PERRL ENT: Present: mucous membranes moist - Routine Respiratory Exam Present: decreased breath sounds, crackles. Absent: dyspnea Comments: Crackles throughout posteriorly. - Routine Cardiovascular Exam Present: RRR, S1, S2, no murmur, tachycardia (Tachycardic on exam. ) - Routine Abdominal Exam Present: soft, non distended, non tender. Absent: normoactive bowel sounds ( Quiet) - Routine Extremities Exam Present: edema (Trace LE. ) - Routine Musculoskeletal Exam Musculoskeletal: Present: moving extremities well, limited range of motion - Routine Skin Exam Present: intact, dry, warm - Routine Neurological Exam Present: alert, moving all extremities - Routine Psychiatric Exam Present: normal affect, cooperative Results - Labs CBC & Chem 7: 05/25/17 04:40 05/25/17 04:40 Labs: Laboratory Results - last 48 hr 05/23/17 05/24/17 05/24/17 12:31 03:57 03:57 WBC 7.3 RBC 3.16 L Hgb 9.5 L D Hct 30.5 L D MCV 96.5 MCH 30.1 MCHC 31.1 RDW Std Deviation 51.5 H Plt Count 107 L MPV 11.7 Turbidity < 20 Sodium 139 Potassium 4.2 Chloride 109 H Carbon Dioxide 26 Anion Gap 4 L BUN 16.0 Creatinine 0.7 GFR Calculation 85 BUN/Creatinine Ratio 23 Glucose 132 H Calculated Osmolality 271 Calcium 7.9 L D Icterus Index < 2 Specimen Hemolysis 17 Blood Type A Positive Antibody Screen Negative 05/25/17 05/25/17 04:40 04:40 WBC 6.5 RBC 2.84 L Hgb 8.6 L Hct 27.3 L MCV 96.1 MCH 30.3 MCHC 31.5 RDW Std Deviation 51.9 H Plt Count 105 L MPV 11.1 Turbidity < 20 Sodium 139 Potassium 4.2 Chloride 109 H Carbon Dioxide 28 Anion Gap 2 L BUN 16.0 Creatinine 0.6 L GFR Calculation 101 BUN/Creatinine Ratio 27 H Glucose 127 H Calculated Osmolality 271 Calcium 8.4 Icterus Index < 2 Specimen Hemolysis < 15 Blood Type Antibody Screen - Impressions I reviewed imaging. Assessment and Plan (1) Left displaced femoral neck fracture Current visit: Yes Status: Acute (2) Rheumatoid arthritis Current visit: Yes Status: Acute (3) COPD (chronic obstructive pulmonary disease) Current visit: Yes Status: Acute (4) Adrenal insufficiency due to corticosteroid withdrawal Current visit: Yes Status: Acute (5) GERD (gastroesophageal reflux disease) Current visit: Yes Status: Acute (6) Hypertension Current visit: Yes Status: Acute (7) Acute blood loss as cause of postoperative anemia Current visit: Yes Status: Acute (8) Tachycardia Current visit: Yes Status: Acute Assessment and Plan: Impression: left displaced femoral neck fracture RA COPD chronic steroids, possible adrenal insufficiency GERD HTN ABLA Tachycardia, multifactorial Fluid overload Plan: 05/25/17 Improving s/p surgical repair 05/23. Continue pain control, PT. She appears fluid overloaded- weight is up 11 kg. Will start IV diuretics. It does not appear that she is on diuretics at home, so will start with a low dose and monitor response. KCL for supplementation. Continue daily weights. HGB continues to trend down. Repeat CBC this afternoon to see if improves with diuresis. Tachycardia- anemia? Fluid overload? Diurese. Add low dose beta erwin. Continue tele. No echo on file that I could appreciate- monitor progress. Continue IV hydrocortisone for now- monitor for orthostatic changes when up. Continue PPI for GERD. Nebs for COPD, but suspect much of crackles/wheezing is fluid related. May need CXR if persists. DVT Prophylaxis: Lovenox GI Prophylaxis: Protonix Resuscitation Status: Full Code - Time spent with patient Time with patient PN: 30 minutes Hospital Course Summary Disclaimer: The visit summary below is not to be considered part of the above Progress Note. Hospital Course: 05/23/17 10:52 Inpatient admission. Patient npo for surgery. Dr. Link consulted. [place] and morphine for pain control. Duonebs for COPD. IV steroids for suspected adrenal suppression. Continue PPI for GERD. Continue ARB for HTN. 05/24/17 10:57 left displaced femoral neck fracture RA COPD chronic steroids, possible adrenal insufficiency GERD HTN ABLA Doing well post-op. Increase activity. Decrease solu-cortef. Monitor hemoglobin. Continue ARB and BB. Bladder training. Resume RA tx 05/25/17 11:49 Improving s/p surgical repair 05/23. Continue pain control, PT. She appears fluid overloaded- weight is up 11 kg. Will start IV diuretics. It does not appear that she is on diuretics at home, so will start with a low dose and monitor response. KCL for supplementation. Continue daily weights. HGB continues to trend down. Repeat CBC this afternoon to see if improves with diuresis. Tachycardia- anemia? Fluid overload? Diurese. Add low dose beta erwin. Continue tele. No echo on file that I could appreciate- monitor progress. Continue IV hydrocortisone for now- monitor for orthostatic changes when up. Continue PPI for GERD. Nebs for COPD, but suspect much of crackles/wheezing is fluid related. May need CXR if persists. <Fran Gilbert IV - Last Filed: 05/25/17 16:28> - Date 05/25/17 Objective Vital signs: Temperature 97.8 F 05/25/17 15:35 Pulse Rate 90 05/25/17 15:35 Respiratory Rate 16 05/25/17 15:35 Blood Pressure 108/57 05/25/17 15:35 Pulse Oximetry 100 05/25/17 15:35 Height/Weight/BMI: Height 5 ft 7 in Weight 78.4 kg Body Mass Index 23.3 Results - Labs CBC & Chem 7: 05/25/17 15:07 05/25/17 04:40 Assessment and Plan (1) Left displaced femoral neck fracture Current visit: Yes Status: Acute (2) Rheumatoid arthritis Current visit: Yes Status: Acute (3) COPD (chronic obstructive pulmonary disease) Current visit: Yes Status: Acute (4) Adrenal insufficiency due to corticosteroid withdrawal Current visit: Yes Status: Acute (5) GERD (gastroesophageal reflux disease) Current visit: Yes Status: Acute (6) Hypertension Current visit: Yes Status: Acute (7) Acute blood loss as cause of postoperative anemia Current visit: Yes Status: Acute (8) Tachycardia Current visit: Yes Status: Acute Assessment and Plan: I have independently interviewed and examined the patient. I have reviewed the medical record. The plan has been discussed and formulated with BONE CHAR OPERATOR as above with the additions below. Patient up to chair. Says she thinks she is doing well. Says her appetite is good. +flatus. Pain controlled. Lungs: crackles. Heart: rrr. Abd: s/nt/nd. +bs Ext: edema Stopping IVF and diuresing. Hgb 9.9 on recheck. Stop solu-cortef after 10/30 am dose. Encourage activity. DC planning Hospital Course Summary Disclaimer: The visit summary below is not to be considered part of the above Progress Note. Hospital Course: 05/25/17 16:28 Stopping IVF and diuresing. Hgb 9.9 on recheck. Stop solu-cortef after 10/30 am dose. Encourage activity. DC planning
[2017-05-25] MEDS: FUROSEMIDE 20 MG/2 ML INJECTION IVP SCH ×2 (11:59→18:04)
[2017-05-25] MEDS ORDERED: BISACODYL 10 MG SUPPOSITORY RECTALLY SCH (20:00)
[2017-05-25] MEDS: ENOXAPARIN 40 MG/0.4 ML INJECTION SQ SCH (21:46)
[2017-05-25] MEDS: FOLIC ACID 1 MG TABLET PO SCH (21:47)
[2017-05-26] MEDS: ALBUTEROL/IPRATROPIUM 2.5mg-0.5mg/3ml NEB AEROSOL SCH ×2 (03:38→09:39)
[2017-05-26] MEDS: PANTOPRAZOLE 40 MG TABLET PO SCH (07:30)
[2017-05-26] MEDS: SALINE FLUSH 10ml SYRINGE IVF PRN ×2 (07:30→08:44)
[2017-05-26] MEDS: HYDROCODONE/APAP 5mg/325mg TABLET PO PRN ×2 (07:30→13:08)
[2017-05-26] MEDS: POLYETHYL GLYCOL 3350 17gm PACKET PO SCH (08:45)
[2017-05-26] MEDS: HYDROCORTISONE SOD SUCC 100mg/2ml INJECTION IVP SCH (08:45)
[2017-05-26] MEDS: FUROSEMIDE 20 MG/2 ML INJECTION IVP SCH (08:45)
[2017-05-26] MEDS: ACYCLOVIR 200 MG CAPSULE PO SCH (08:46)
[2017-05-26] MEDS: LOSARTAN 50 MG TABLET PO SCH (08:46)
[2017-05-26] MEDS: SERTRALINE 100 MG TABLET PO SCH (08:46)
[2017-05-26] MEDS: LEFLUNOMIDE 10 MG TABLET PO SCH (08:46)
[2017-05-26] MEDS: DOCUSATE SODIUM 100 MG CAPSULE PO SCH (08:46)
[2017-05-26] MEDS: TOFACITINIB CITRATE 11 MG PO SCH (08:47)
--- NOTE | 2017-05-26 11:49 | Death Note ---
Providers - Provider Primary care physician: Dony Kennedy Admitting clinician: Juan Maunel Mcknight Attending Physician: Fran Gilbert IV Consults: 05/23/17 07:23 Physician Consult [CONS] Routine Consulting Provider: Charan Link Reason For Exam: Left hip fracture Ordering Provider has Notified Marine Surveyor: Yes 05/23/17 17:30 Case Management Consult [CONS] Routine Reason For Exam: Discharge Planning DME-Walker [CONS] Routine Height: 5 ft 7 in Weight: 67.4 kg Comment: change dressing in 2 weeks [facility] Outpatient Therapy [CONS] Routine Comment: change dressing in 2 weeks Diagnosis - Contributing Factors (1) Left displaced femoral neck fracture Status: Acute (2) Rheumatoid arthritis Status: Acute (3) COPD (chronic obstructive pulmonary disease) Status: Acute (4) Adrenal insufficiency due to corticosteroid withdrawal Status: Acute (5) GERD (gastroesophageal reflux disease) Status: Acute (6) Hypertension Status: Acute (7) Acute blood loss as cause of postoperative anemia Status: Acute (8) Tachycardia Status: Acute Summary - Date and Time Date of admission: 05/22/17 20:51 - Additional Data Attending physician: Fran Gilbert IV, MD
--- NOTE | 2017-05-26 11:56 | Discharge Summary ---
Discharge Information Date of admission: 05/22/17 20:51 Anticipated date of discharge: 05/26/17 Attending Physician: Fran Gilbert IV, MD Primary care physician: Dony Kennedy DO Consults: 05/23/17 07:23 Physician Consult [CONS] Routine Consulting Provider: Charan Link Reason For Exam: Left hip fracture Ordering Provider has Notified Pest Controller Assistant: Yes 05/23/17 17:30 Case Management Consult [CONS] Routine Reason For Exam: Discharge Planning DME-Walker [CONS] Routine Height: 5 ft 7 in Weight: 67.4 kg Comment: change dressing in 2 weeks [facility] Outpatient Therapy [CONS] Routine Comment: change dressing in 2 weeks - Discharge Diagnosis (1) Left displaced femoral neck fracture Status: Acute (2) Rheumatoid arthritis Status: Acute (3) COPD (chronic obstructive pulmonary disease) Status: Acute (4) Adrenal insufficiency due to corticosteroid withdrawal Status: Acute (5) GERD (gastroesophageal reflux disease) Status: Acute (6) Hypertension Status: Acute (7) Acute blood loss as cause of postoperative anemia Status: Acute (8) Tachycardia Status: Acute - Laboratory Labs: 05/26/17 04:16 05/26/17 04:16 History of Present Illness HPI: This is a 61 y/o female who was walking two of her 5 dogs this evening and got tangled in the leash and fell landing on her left hip. Immediate pain. Presents to the ED with xray confirming displaced surgical neck fx of left femur. Dr. Link contacted and will see in the am. From a medical perspective she has a history of RA and is currently on a biological agent for this. Sheis being slowly tapered on her steroids. The patients level of activity is good. Very engaged in her environment and is able to perform over 8 METS of activity. The patient had a stress test 2 yrs ago that she reports as negative. Admit for surgical repair of hip. Objective Vital signs: Temperature 98.1 F 05/26/17 08:00 Pulse Rate 86 05/26/17 08:00 Respiratory Rate 15 05/26/17 09:40 Blood Pressure 127/64 05/26/17 08:00 Pulse Oximetry 100 05/26/17 09:40 Rhythm: Sinus Tachycardia Height/Weight/BMI: Height 5 ft 7 in Weight 68.5 kg Body Mass Index 23.3 - Constitutional Present: well nourished, well developed - Routine HEENT Exam Eye: Present: EOMI ENT: Present: mucous membranes moist, dentition normal - Routine Respiratory Exam Present: CTA bilaterally. Absent: wheezes - Routine Cardiovascular Exam Present: RRR. Absent: murmur - Routine Abdominal Exam Present: soft, normoactive bowel sounds, non distended. Absent: tenderness - Routine Extremities Exam Present: normal capillary refill - Routine Neurological Exam Present: alert, oriented X3, CN II-XII intact Hospital Course This is a general summary of the patient's hospital course. For more details refer to the complete medical record. Enma Wilkins was admitted for a displaced left femoral neck fracture. Dr. Link took her to surgery on 05/23/17 to repair the fracture. Patient has been participating with therapy and doing well. Her pain has been controlled on [place]. Because of chronic steroid use, she was placed on Solu-Cortef perioperatively. Post-op her hemoglobin is down. It is 8.9 today. She is not symptomatic. She plans to return home with [facility] outpatient therapy. She has a walker. Her is retired and will be available to help her. Hospital course: 05/25/17 16:28 Stopping IVF and diuresing. Hgb 9.9 on recheck. Stop solu-cortef after 10/30 am dose. Encourage activity. NE planning Time spent with patient: discharge greater than 30 minutes Discharge Plan - Discharge Disposition *Condition: Improved *Reason For Visit: fx left hip - Discharge Medications *Discharge Medications: New Metoprolol Tartrate [Lopressor] 12.5 mg PO BIDWM #60 tab PEG 3350 17gm PACKET [Miralax] 17 gm PO DAILY packet Enoxaparin Sodium [Lovenox] 40 mg SQ Q24H #30 syringe Hydrocodone/APAP 5/325 [[place] 5/325] 1 tab PO Q6H PRN #20 tab PRN Reason: Pain Continue Albuterol Sulfate [Proair Hfa] 8.5 gm IH PRN #0 Folic Acid 400 mcg PO HS #0 Aspirin 325 mg PO DAILY #0 tab Multivit-Min/Iron/Folic/Lutein [Centrum Silver Women Tablet] 1 tab PO DAILY Lidocaine 1 patch TD DAILY Gabapentin [Neurontin] 200 mg PO HS PredniSONE [Deltasone] 7 mg PO Q30D Leflunomide 20 mg PO DAILY Losartan Potassium [Cozaar] 25 mg PO DAILY Tofacitinib Citrate [Xeljanz Xr] 11 mg PO DAILY Sertraline [Zoloft] 100 mg PO DAILY Acyclovir 400 mg PO BID METHOTREXATE 2.5mg TAB [Methotrexate] 10 mg PO .BIDQ7D Protonix (Pantoprazole)40 mg tablet,delayed release 40 mg PO QAM #90 tab Breo Ellipta (fluticasone 100 mcg-vilanterol 25 mcg/dose) powder for inhalation 1 inh INH Q24H #60 each levalbuterol 1.25 mg/3 mL solution for nebulization 1.25 mg INH Q4H PRN #3 ml PRN Reason: shortness of breath or wheezing alendronate 70 mg tablet 70 mg PO WEEKLY #12 tab estradiol 0.0375 mg/24 hr semiweekly transdermal patch 1 patch TD 2XW #8 patch - Discharge Packet/Instructions *Diet: Resume normal diet as tolerated *Activity: Continue the exercises you were given in the hospital three times a day. Your therapist will provide you with a home therapy program prior to your hospital discharge. As you feel stronger, increase the number of repetitions you do in each session. Please check with us before you swim, use a whirlpool, drive or ride a bicycle *Pain Management/Treatment: Ice packs may be used, and will also help with the pain. *Wound Care: In most cases, a Mepilex dressing will be placed at the time of surgery. This dressing will not need to be covered while showering. Leave dressing in place until your follow-up appointment as long as it remains clean, dry and stuck down well around the edges. Call your Doctor if you encounter a problem with your dressing. Please avoid submerging your incision until it is completely healed, once the Mepilex dressing is removed. This includes bathtubs , swimming pools, and hot tubs. DO NOT USE ALCOHOL, PEROXIDE, OR OINTMENTS of any kind on your incision. *Expected Signs/Symptoms: Some swelling around the incision, as well as in your feet and legs is normal. To help with this, elevate your feet on a footstool when sitting in a chair, and do the ankle pumps and circles whenever you are sitting still. Muscle action helps to move collected fluid out of the tissues and improve circulation. Ice packs may be used, and will also help with the pain. Report any persistent swelling, calf tenderness, increase in pain, or pain in the calf with warmth, or redness to your doctor. *Notify Physician if: Report any complications to my office immmediately. This includes excessive bleeding, wound breakdown, redness around the wound, uncontrolled pain, or fever over 101 on 3 different measurements. Eat a balanced diet and get plenty of rest. *During Business Hours Contact: If you have any questions or concerns, please call during regular office hours ([phone]). *After Business Hours Contact: If you have any problems or need to reach a physician after hours or on the weekend please call the hospital's main number [phone] to have your physician paged. *Pending Lab/Results: Follow up w/your PCP - Referrals/Follow Up *Referrals/Follow Up: Charan Link MD [Physician] - - Patient Handouts - Dismissal Complete Discharge Instructions are:: Complete
[2017-05-26 12:38] VITALS: BP 119/58; PULSE 80; RESP 18; TEMP 96.4; O2SAT 95
--- NOTE | 2017-05-26 12:59 | Orthopedic Progress Note ---
Date: Subjective/Severity of Illness: No new complaints. She is doing better with ambulation every day. On discharge she will need a 3 week post op appointment with Dr. Link and a bone health appointment with Dr. Godwin. Orthopedic Objective PO Vital signs: Temperature 96.4 F L 05/26/17 12:00 Pulse Rate 80 05/26/17 12:00 Respiratory Rate 18 05/26/17 12:00 Blood Pressure 119/58 05/26/17 12:00 Pulse Oximetry 95 05/26/17 12:00 Height and Weight: Height 5 ft 7 in Weight 151 lb 0.266 oz Body Mass Index 23.3 - Constitutional General Appearance: Present: cooperative, no acute distress - Respiratory Exam Present: non-labored - Abdominal Exam Absent: tenderness, distended - Extremities Exam Extremities: Present: pulses intact - Hip Exam Hip Exam: Present: IR-limited, ER- limited. Absent: abnormal rotation - Surgical Site Incision: dressing intact - Integumentary Exam Present: pink, warm, dry - Neurological Exam Present: intact to light touch, no deficits - Psychiatric Exam Present: other (Sleepy from pain meds. Pt in ER trauma bay when I talked with her.) - Wound Management Left Hip Primary Dressing: Mepilex - Labs Result Diagrams: 05/26/17 04:16 05/26/17 04:16 Abnormal lab results 05/25/17 05/25/17 05/26/17 Range/Units 15:07 18:49 04:16 RBC 3.20 L 3.10 L 2.92 L (4.00-5.20) M/MM3 Hgb 9.9 L D 9.5 L 8.9 L (12-16) GM/DL Hct 30.9 L D 29.9 L 28.1 L (36-46) % RDW Std Deviation 52.4 H 52.4 H 51.4 H (36.9-50.2) FL Carbon Dioxide (22-30) MEQ/L BUN (7-17) MG/DL Creatinine (0.7-1.2) MG/DL BUN/Creatinine Ratio (6-26) RATIO Glucose (65-110) MG/DL 05/26/17 Range/Units 04:16 RBC (4.00-5.20) M/MM3 Hgb (12-16) GM/DL Hct (36-46) % RDW Std Deviation (36.9-50.2) FL Carbon Dioxide 31 H (22-30) MEQ/L BUN 18.0 H (7-17) MG/DL Creatinine 0.6 L (0.7-1.2) MG/DL BUN/Creatinine Ratio 30 H (6-26) RATIO Glucose 127 H (65-110) MG/DL H & H 05/23/17 05/24/17 05/25/17 Range/Units 04:11 03:57 04:40 Hgb 11.8 L 9.5 L D 8.6 L (12-16) GM/DL Hct 37.0 30.5 L D 27.3 L (36-46) % 05/25/17 05/25/17 05/26/17 Range/Units 15:07 18:49 04:16 Hgb 9.9 L D 9.5 L 8.9 L (12-16) GM/DL Hct 30.9 L D 29.9 L 28.1 L (36-46) % Orthopedic Assessment and Plan (1) Left displaced femoral neck fracture Status: Acute Assessment and Plan: Mrs. Dior is doing well postop day 3. Progress with physical therapy and hip precautions. Okay orhopaedically for discharge. 3 week follow up with Dr. Link make a bone health appointment with Dr. Godwin for osteoporosis She will need 30 days of Lovenox for DVT prevention. - Anticoagulation Therapy Anticoagulation: Lovenox 40 mg SQ Daily x 30 days from day of surgery Hospital Course Summary Disclaimer: The visit summary below is not to be considered part of the above Progress Note. Hospital Course: 05/25/17 16:28 Stopping IVF and diuresing. Hgb 9.9 on recheck. Stop solu-cortef after 10/30 am dose. Encourage activity. DC planning
[2017-05-26] MEDS: ENOXAPARIN 40 MG/0.4 ML INJECTION SQ SCH (15:23)
== END 2017-05-26 15:40 | disposition home or self-care (01) | DRG 470 ==
LOC: ED 18:35 → SRG 20:51 → SUATTDRO 20:51 → SRG 20:55
PROVIDERS: ADMIT Emergency Medicine; ATTEND Hospitalist